=== PATIENT | female | born 1960 | race African-American/Black ===

== ENCOUNTER 2017-07-14 13:53 | Emergency (ER) | payer MEDICAID, OTHER ==
[~2017-07-14] VITALS: Ht 152.4 cm; Wt 91.0 kg
[2017-07-14] MEDS ORDERED: KETOROLAC 60MG/2ML VIAL IM ONE (15:00)
[2017-07-14 16:37] VITALS: BP 110/64
== END 2017-07-14 17:33 | disposition home or self-care (01) ==
LOC: ER 15:36
DX: R60.0 Localized edema (principal); M79.605 Pain in left leg; M79.604 Pain in right leg; I10 Essential (primary) hypertension; Z87.39 Personal history of other diseases of the musculoskeletal system and connective tissue; M41.9 Scoliosis, unspecified; Z90.710 Acquired absence of both cervix and uterus; Z90.49 Acquired absence of other specified parts of digestive tract; Z90.89 Acquired absence of other organs
CPT/HCPCS: 93970; 96372; 99284; J1885